=== PATIENT | male | born 2000 | race Two or more races ===

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

== ENCOUNTER 2025-09-10 13:44 | Outpatient (CLI) | payer OTHER | END 2025-09-10 13:50 | disposition home or self-care (01) | LOC: RAD 13:44 | PROVIDERS: ATTEND Orthopaedic Surgery | DX: M79.604 Pain in right leg (principal) ==